=== PATIENT | male | born 1945 | race Caucasian/White ===

== ENCOUNTER 2018-06-09 11:28 | Emergency (ER) | payer MEDICARE, OTHER ==
[~2018-06-09] VITALS: Ht 177.8 cm; Wt 86.6 kg
[2018-06-09] MEDS ORDERED: HYDROCODONE/APAP 5MG-325MG TAB PO ONE (11:45)
--- NOTE | 2018-06-09 12:19 | Diagnostic Imaging Report ---
SHOULDER LEFT COMPLETE HISTORY: Fall, left shoulder pain. COMPARISON: None available. FINDINGS: Bones: No acute displaced fracture. Increased coracoclavicular and acromioclavicular intervals measuring 1.9 cm and 1.2 cm respectively. Joints: The joint spaces are well-maintained. Soft tissues: The soft tissues appear unremarkable. IMPRESSION: No acute bony abnormality. Left acromioclavicular joint injury, suggestive of type III injury ([place] classification). Signed by: DR. Jovi Paredes MD on 06/09/2018 12:16 PM
--- NOTE | 2018-06-09 12:23 | Diagnostic Imaging Report ---
CERVICAL SPINE 4 OR 5 VIEWS HISTORY: Fall, left shoulder pain, history of herniated disc in neck. COMPARISON: None. FINDINGS: Limited sensitivity for detection of subtle fractures and ligamentous abnormalities. On the lateral view, the cervical spine is visualized from the skull base to C7. 4 mm anterolisthesis of C4 on C5. No acute displaced fracture involving the visualized cervical spine. No prevertebral soft tissue swelling. Disc Spaces and Uncovertebral Joints: Multilevel degenerative disc space narrowing of the spine, worse from C3 through C7. IMPRESSION: No acute displaced fractures. 4 mm anterolisthesis of C4 on C5. Signed by: DR. Jovi Paredes MD on 06/09/2018 12:20 PM
[2018-06-09 15:22] VITALS: BP 147/79
== END 2018-06-09 14:30 | disposition home or self-care (01) ==
LOC: ER 11:28
DX: S00.83XA Contusion of other part of head, initial encounter (principal); S40.012A Contusion of left shoulder, initial encounter; S80.02XA Contusion of left knee, initial encounter; W18.39XA Other fall on same level, initial encounter; Y92.008 Other place in unspecified non-institutional (private) residence as the place of occurrence of the external cause; I10 Essential (primary) hypertension; E11.9 Type 2 diabetes mellitus without complications
CPT/HCPCS: 72050; 99283

== ENCOUNTER 2025-06-02 21:00 | Emergency (ER) | payer MEDICARE, OTHER ==
[~2025-06-02] VITALS: Ht 177.8 cm; Wt 86.6 kg
[2025-06-02 21:15] VITALS: PULSE 74; RESP 18; TEMP 97.8
[2025-06-02 22:22] VITALS: BP 134/72; PULSE 72; RESP 18; O2SAT 98
== END 2025-06-02 22:45 | disposition home or self-care (01) ==
LOC: ER 21:03
DX: K56.41 Fecal impaction (principal); I10 Essential (primary) hypertension; E11.9 Type 2 diabetes mellitus without complications
CPT/HCPCS: 99283